=== PATIENT | female | born 1925 | race Caucasian/White ===

== ENCOUNTER → 2016-12-08 | Outpatient (CLI) | payer MEDICARE ==
--- NOTE | 2016-12-08 16:55 | Diagnostic Imaging Report ---
INDICATION: Left foot pain. 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 There is no acute fracture or dislocation. IMPRESSION: Large bunion. No acute abnormality is seen. Dictated by: Dictated on workstation # [id number]
== END ==
LOC: RAD 15:36
PROVIDERS: ATTEND Family Medicine
DX: M21.612 Bunion of left foot (principal)
CPT/HCPCS: 73630